=== PATIENT | female | born 1995 | race Caucasian/White ===

== ENCOUNTER 2018-05-17 16:14 | Emergency (ER) | payer OTHER ==
[~2018-05-17] VITALS: Ht 154.9 cm; Wt 56.7 kg
[2018-05-17] MEDS ORDERED: PHENERGAN25 MG (16:42)
[2018-05-17] MEDS ORDERED: CLARITIN5 MG (16:42)
[2018-05-17] MEDS ORDERED: BENTYL10 MG/1 ML (16:42)
== END 2018-05-17 19:10 | disposition home or self-care (01) ==
LOC: ER 16:14
DX: R10.2 Pelvic and perineal pain (principal); Z30.433 Encounter for removal and reinsertion of intrauterine contraceptive device